=== PATIENT | female | born 1930 | race Caucasian/White ===

== ENCOUNTER → 2016-03-12 | Outpatient (CLI) | payer MEDICARE, OTHER | LOC: GMAL 12:31 | PROVIDERS: ATTEND Family Medicine | DX: D53.9 Nutritional anemia, unspecified (principal); E03.9 Hypothyroidism, unspecified ==

== ENCOUNTER → 2016-05-13 | Outpatient (CLI) | payer MEDICARE, OTHER ==
--- NOTE | 2016-05-13 12:46 | US ---
EXAM DESCRIPTION: Renal Arteries CLINICAL HISTORY: 86 years Female, ATHEROSCLEROSIS OF RENAL ARTERY COMPARISON: None. TECHNIQUE: 2-D grayscale and color arterial duplex Doppler evaluation of the abdominal aorta and renal vasculature are obtained. FINDINGS: The peak systolic velocity of the abdominal aorta is a 3.5 cm/s. Peak systolic velocity of the right main renal arteries 146 cm/s. The peak systolic velocity of the left main renal arteries 57 cm/s. The renal artery to aorta ratio is 1.8 on the right 0.7 on the left. Resistive indexes 1.8 on the right and left. There is limited evaluation of the renal parenchyma on this exam. IMPRESSION: No ultrasound evidence of renal artery stenosis. Elevated resistive index in both kidneys suggest chronic medical renal disease. Electronically signed by: Rc Frausto MD 05/13/2016 12:46 PM SURGICAL TECH
== END | disposition home or self-care (01) ==
LOC: US 10:30
PROVIDERS: ATTEND Internal Medicine Cardiovascular Disease
DX: I70.1 Atherosclerosis of renal artery (principal)

== ENCOUNTER 2016-05-21 16:50 | Outpatient (CLI) | payer MEDICARE, OTHER ==
[2016-05-22] MEDS ORDERED: SODIUM CHLORIDE 0.9% 500ML 500 ML IVS ONE (09:43)
[2016-05-22] MEDS ORDERED: diphenhydrAMINE HCL 50 MG/ML VIAL IV ONE (10:15)
[2016-05-22 13:42] VITALS: BP 158/68; TEMP 98.9; O2SAT 98
== END 2016-05-22 13:35 | disposition home or self-care (01) ==
LOC: TXRM 16:50
PROVIDERS: ATTEND Family Medicine
PROC: 30233N1 Transfusion of Nonautologous Red Blood Cells into Peripheral Vein, Percutaneous Approach (ICD-10-PCS; principal; 2016-05-22 08:00)
DX: D64.9 Anemia, unspecified (principal)
CPT/HCPCS: 36415; 36430; 86850; 86900; 86901; 86922; G0463; J1200; J7040; P9016

== ENCOUNTER → 2016-05-27 | Outpatient (CLI) | payer MEDICARE, OTHER | END | disposition home or self-care (01) | LOC: GMAL 14:07 | PROVIDERS: ATTEND Family Medicine | DX: D53.9 Nutritional anemia, unspecified (principal) ==

== ENCOUNTER 2016-05-28 15:22 | Outpatient (CLI) | payer MEDICARE, OTHER ==
[~2016-05-28 15:22] MED LIST: SODIUM CHLORIDE 0.9% 500ML 500 ML IVS ONE
[2016-05-29] MEDS: ACETAMINOPHEN 325 MG TAB PO ONE (09:15)
[2016-05-29] MEDS: diphenhydrAMINE HCL 50 MG/ML VIAL IV ONE (09:15)
[2016-05-29 12:42] VITALS: BP 156/70; TEMP 98.4; O2SAT 99
== END 2016-05-29 12:30 | disposition home or self-care (01) ==
LOC: TXRM 15:22
PROVIDERS: ATTEND Family Medicine
PROC: 30233N1 Transfusion of Nonautologous Red Blood Cells into Peripheral Vein, Percutaneous Approach (ICD-10-PCS; principal; 2016-05-29 08:00)
DX: D53.9 Nutritional anemia, unspecified (principal)
CPT/HCPCS: 36415; 36430; 86850; 86900; 86901; 86922; G0463; J1200; J7040; P9016

== ENCOUNTER → 2016-06-17 | Outpatient (CLI) | payer MEDICARE, OTHER | END | disposition home or self-care (01) | LOC: GMAL 14:26 | PROVIDERS: ATTEND Family Medicine | DX: D64.9 Anemia, unspecified (principal) ==

== ENCOUNTER → 2016-08-09 | Outpatient (CLI) | payer MEDICARE, OTHER | END | disposition home or self-care (01) | LOC: GMAL 10:23 | PROVIDERS: ATTEND Family Medicine | DX: D51.3 Other dietary vitamin B12 deficiency anemia (principal); E55.9 Vitamin D deficiency, unspecified; R25.9 Unspecified abnormal involuntary movements ==

== ENCOUNTER → 2017-02-07 | Outpatient (CLI) | payer MEDICARE, OTHER | END | disposition home or self-care (01) | LOC: GMAL 12:49 | PROVIDERS: ATTEND Family Medicine | DX: D51.3 Other dietary vitamin B12 deficiency anemia (principal); E03.9 Hypothyroidism, unspecified; E55.9 Vitamin D deficiency, unspecified ==

== ENCOUNTER 2017-06-25 12:25 | Inpatient (IN) | payer MEDICARE, OTHER ==
--- NOTE | 2017-06-25 12:42 | HP ---
SUPERVISING PHYSICIAN: Eyal Stroud MD CHIEF COMPLAINT: Coughing and shortness of breath. HISTORY OF PRESENT ILLNESS: This is an 87-year-old female patient who went to see her primary care physician, Dr. Bynum, approximately one week ago for coughing and congestion. At that time, she was treated with some azithromycin and some steroids. She completed her prescriptions from Dr. Bynum, but continued to worsen. Her cough worsened, her congestion worsened, she had a runny nose, she had a low grade temperature. He sputum actually was a petersen- green. She was very fatigued. She had some wheezing and she was short of breath. Because she continued to worsen, she saw Kate Silvestre in clinic today. CBC was obtained and she had WBC 10, hemoglobin 14.3, hematocrit 42. Chest x-ray showed no consolidation, but is positive for chronic obstructive pulmonary disease. Because of her failed outpatient treatment, I was called for admission to the hospital. She was a direct admit from Dr. Bynum' office. PAST MEDICAL HISTORY: 1. Hypothyroidism. 2. Diverticulitis. 3. Gastroesophageal reflux disease. 4. Hypertension. 5. One episode of gout. 6. Hyperlipidemia. PAST SURGICAL HISTORY: 1. Two-vessel coronary artery bypass graft in 1998. 2. times 3. 3. Hysterectomy. 4. 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 OUTPATIENT MEDICATIONS: Per the EMR and awaiting verification. ALLERGIES: CODEINE, DILTIAZEM, DOXYCYCLINE, ERYTHROMYCIN, METRONIDAZOLE, SIMVASTATIN, SULFA, ANT BITES. SOCIAL HISTORY: She is retired. She is . She has 3 children. She denies any tobacco, ETOH or illicit drug use. REVIEW OF SYSTEMS: GENERAL: Positive for fatigue and fever. Negative for weight changes. HEENT: Positive for rhinorrhea. Near for ear pain, sore throat or vision changes. RESPIRATORY: Positive for wheezing, coughing or shortness of breath. CARDIAC: Negative for chest pain, palpitations or tachycardia. GASTROINTESTINAL: Negative for nausea, vomiting, diarrhea, constipation. SKIN: Negative for lesions or rashes. GENITOURINARY: Negative for hematuria, dysuria or polyuria. MUSCULOSKELETAL: Negative for arthralgias, myalgias. NEUROLOGIC: Negative for headache, dizziness or seizures. PHYSICAL EXAMINATION: VITAL SIGNS: Afebrile. Heart rate 73. Blood pressure 160/80. Respiratory rate 20. O2 saturation 94% on 2 liters nasal cannula. GENERAL: This is an 87-year-old female patient who is lying in her hospital bed. She is in no acute distress. HEENT: Normocephalic, atraumatic. Pupils are equal and reactive. Oropharynx is clear. NECK: Supple without mass. RESPIRATORY: Diminished breath sounds throughout. She has scattered rhonchi throughout as well as diffuse expiratory wheezing. CARDIOVASCULAR: Regular rate and rhythm. GASTROINTESTINAL: Abdomen is soft, nondistended, nontender. Bowel sounds are positive. EXTREMITIES: No cyanosis, clubbing or edema. NEUROLOGIC: Awake, alert and oriented times three. LABORATORY: Sodium 135, potassium 4.7, chloride 97, carbon dioxide 29, BUN 25, creatinine 1.04, glucose 93, serum osmolality 274.2. Urinalysis within normal limits. Sputum culture and blood cultures are pending. All other labs and films are as per history of present illness or the EMR. ASSESSMENT: 1. Acute exacerbation of chronic obstructive pulmonary disease with failed outpatient therapy with concerns for developing pneumonia, community acquired. 2. Hypertension. 3. Hypothyroidism. PLAN: We will admit the patient to the hospital. I will order good pulmonary hygiene as well as some Levaquin and IV steroids. We will taper those as her condition improves. Repeat her lab and chest x-ray in the morning. I will also monitor her cultures. I will start her on guaifenesin and continue to monitor the patient closely and follows as needed. Dr. Stroud is the collaborating physician and available for consultation. #[id number] [facility]
[2017-06-25] MEDS ORDERED: SODIUM CHLORIDE 0.9% (FLUSH) 10 ML SYG IV PRN (14:24)
[2017-06-25] MEDS ORDERED: ALBUTEROL SULFATE 2.5 MG/3 ML VIAL NEB PRN (14:25)
[2017-06-25] MEDS ORDERED: IV SET AND CAP CHANGE INJ INJ SCH (14:30)
[2017-06-25] MEDS ORDERED: levoFLOXacin 250MG IV 250 MG in PREMIX BAG 1 BAG IVPB SCH (14:30)
[2017-06-25] MEDS ORDERED: levoFLOXacin 250MG IV 50 ML IVPB ONE (15:33)
[2017-06-25] MEDS: ALBUTEROL SULFATE 2.5 MG/3 ML VIAL NEB SCH ×2 (16:30→21:00)
[2017-06-25] MEDS ORDERED: SODIUM CHLORIDE 0.9% 1000ML 1,000 ML IVS ONE (18:21)
[2017-06-25] MEDS ORDERED: methylPREDNISolone SODIUM SUC 125 MG/2 ML VIAL IV ONE (18:22)
[2017-06-25] MEDS ORDERED: NON-FORMULARY MEDICATION 1 EA MIS (Amlodipine Besylate [Norvasc] 2.5 MG) PO SCH (18:45)
[2017-06-25] MEDS: IRBESARTAN 300 MG PO SCH (19:05)
[2017-06-25] MEDS ORDERED: PANTOPRAZOLE SODIUM IV 40 MG VIAL IV SCH (19:30)
[2017-06-25] MEDS ORDERED: methylPREDNISolone SODIUM SUC 40 MG/ML VIAL ONE (21:49)
[2017-06-25] MEDS ORDERED: LEVOTHYROXINE SODIUM 0.025 MG TAB ONE (21:50)
[2017-06-25] MEDS: ENOXAPARIN SODIUM 40 MG/0.4 ML SYG SUBCU SCH (22:18)
[2017-06-25] MEDS: ATORVASTATIN 20 MG TAB PO SCH (22:19)
[2017-06-25] MEDS: CARVEDILOL 12.5 MG TAB PO SCH (22:19)
[2017-06-25] MEDS: ISOSORBIDE DINITRATE 5 MG TAB PO SCH (22:20)
[2017-06-25] MEDS: SODIUM CHLORIDE 0.9% (FLUSH) 10 ML SYG IV SCH (22:20)
[2017-06-26] MEDS: methylPREDNISolone SODIUM SUC 40 MG/ML VIAL IV SCH ×4 (00:33→18:02)
[2017-06-26] MEDS: LEVOTHYROXINE SODIUM 0.025 MG TAB PO SCH (05:42)
[2017-06-26] MEDS: ALBUTEROL SULFATE 2.5 MG/3 ML VIAL NEB SCH ×4 (09:15→20:02)
[2017-06-26] MEDS: DOCUSATE SODIUM 100 MG CAP PO SCH (09:55)
[2017-06-26] MEDS: amLODIPine BESYLATE 5 MG TAB PO SCH (09:55)
[2017-06-26] MEDS: IRBESARTAN 300 MG PO SCH (09:55)
[2017-06-26] MEDS: CARVEDILOL 12.5 MG TAB PO SCH ×2 (09:56→21:32)
[2017-06-26] MEDS: ISOSORBIDE DINITRATE 5 MG TAB PO SCH ×2 (09:56→21:32)
[2017-06-26] MEDS: guaiFENesin ER TAB 600 MG TAB PO SCH ×2 (09:56→21:32)
[2017-06-26] MEDS: SODIUM CHLORIDE 0.9% (FLUSH) 10 ML SYG IV SCH ×2 (09:57→21:33)
[2017-06-26] MEDS ORDERED: levoFLOXacin 250MG IV 250 MG in PREMIX BAG 1 BAG IVPB SCH (15:00)
[2017-06-26] MEDS ORDERED: BENZONATATE PERLES 100 MG CAP PO PRN (15:42)
[2017-06-26] MEDS ORDERED: levoFLOXacin 250MG IV 50 ML IVPB ONE (15:47)
[2017-06-26] MEDS: PANTOPRAZOLE SODIUM TAB 40 MG PO SCH (16:53)
[2017-06-26] MEDS: ATORVASTATIN 20 MG TAB PO SCH (21:32)
[2017-06-26] MEDS: ENOXAPARIN SODIUM 40 MG/0.4 ML SYG SUBCU SCH (21:33)
[2017-06-27] MEDS: LEVOTHYROXINE SODIUM 0.025 MG TAB PO SCH (06:03)
[2017-06-27] MEDS: PANTOPRAZOLE SODIUM TAB 40 MG PO SCH (06:03)
--- NOTE | 2017-06-27 07:18 | RAD ---
Examination: XR CHEST 2 VIEWS dated 06/27/2017 5:00 AM CDT History: pna Comparison: 06/23/2015 Technique: 2 views of the chest Findings: The lungs are clear bilaterally. No pneumothorax or pleural effusion. Prior median sternotomy with CABG. Unremarkable cardiac silhouette. Aortic atherosclerosis. Impression: No acute findings. Electronically signed by: Daniel Le MD 06/27/2017 7:16 AM CDT
--- NOTE | 2017-06-27 07:40 | PN ---
DATE: 06/26/17 SUPERVISING PHYSICIAN: Eyal Stroud MD SUBJECTIVE: The patient is lying in bed. Earlier today she had a very bad cough which she had difficulty breathing, most likely it was a bronchospasm. Other thab that, she has no complaints of chest pain, nausea or vomiting. She continues to have a cough but it is improved since yesterday. OBJECTIVE: VITAL SIGNS: She is afebrile. Heart rate 74, blood pressure 152/74, respiratory rate 18. 02 saturation 98%on room air. CHEST: Scattered rhonchi throughout all lung hoffmann but improved since yesterday. There is a very mild expiratory wheeze in the right upper airway. CARDIAC: Regular rate and rhythm. GI: Abdomen is soft, nondistended, non-tender. Bowel sounds are positive. NEURO: She is alert and oriented x3. LABORATORY: Chemistry is basically within normal limits with the exception of glucose which is slightly elevated at 155. WBCs are 9.1 with hemoglobin of 13.4 and hematocrit of 40.4 with neutrophils of 89.0. Preliminary blood cultures show no growth after 24 hours. Preliminary sputum culture shows gram- negative rods. All other labs and films have been reviewed via the EMR. ASSESSMENT: 1. Acute exacerbation of chronic obstructive pulmonary disease with failed outpatient therapy and concerns for developing pneumonia, community acquired. Initial sputum culture shows gram-negative rods. 2. Hypertension. 3. Hypothyroidism. PLAN: We will continue present supportive care. We will continue to monitor her sputum once the sensitivities are available and will change antibiotics as needed. Clinically, she is much improved, she did have a bronchospasm this afternoon and I have given er some Tessalon Perles for cough as well as Guaifenesin. I have ordered a CBC, BNP and chest x-ray in the morning. I changed her to oral steroids starting tomorrow as well as her Levaquin antibiotics and will continue to monitor closely and follow as needed. Dr. Stroud is the collaborating physician available for consultation. #[id number] [facility]
[2017-06-27] MEDS: ALBUTEROL SULFATE 2.5 MG/3 ML VIAL NEB SCH ×4 (08:17→20:35)
[2017-06-27] MEDS ORDERED: levoFLOXacin 250MG IV 250 MG in PREMIX BAG 1 BAG IVPB SCH (09:00)
[2017-06-27] MEDS: IRBESARTAN 300 MG PO SCH (10:24)
[2017-06-27] MEDS: levoFLOXacin 500 MG TAB PO SCH (10:24)
[2017-06-27] MEDS: guaiFENesin ER TAB 600 MG TAB PO SCH ×2 (10:25→21:40)
[2017-06-27] MEDS: DOCUSATE SODIUM 100 MG CAP PO SCH (10:25)
[2017-06-27] MEDS: predniSONE 20 MG TAB PO SCH (10:25)
[2017-06-27] MEDS: CARVEDILOL 12.5 MG TAB PO SCH ×2 (10:25→21:39)
[2017-06-27] MEDS: ISOSORBIDE DINITRATE 5 MG TAB PO SCH ×2 (10:25→21:39)
[2017-06-27] MEDS: amLODIPine BESYLATE 5 MG TAB PO SCH (10:26)
[2017-06-27] MEDS: SODIUM CHLORIDE 0.9% (FLUSH) 10 ML SYG IV SCH ×2 (10:27→21:40)
--- NOTE | 2017-06-27 18:03 | PN ---
DATE: 06/27/17 SUPERVISING PHYSICIAN: Eyal Stroud M.D. SUBJECTIVE: The patient is sitting on the side of the bed. She is visiting with her . She is doing a breathing treatment. Feels much improved. Still has some coughing but no shortness of breath, chest pain, nausea, vomiting or diarrhea. OBJECTIVE: VITAL SIGNS: She is afebrile, heart rate 77, blood pressure 155/72, respiratory rate 20, O2 sat 96% on room air. RESPIRATORY: A few scattered rhonchi throughout and an expiratory wheeze in the left upper lung field. CARDIAC: Regular rate and rhythm. GASTROINTESTINAL: Abdomen is soft, nondistended, non-tender. Bowel sounds are positive. EXTREMITIES: No cyanosis , clubbing or edema. NEUROLOGIC: She is awake, alert and oriented times three. LABORATORY: WBCs have increased to 18,800 with hemoglobin 11.9, hematocrit 36.3. Electrolytes are within normal limits. Sputum culture shows Klebsiella pneumoniae sensitive to Levaquin which she is presently taking. RADIOLOGY: Chest x-ray shows no acute findings. All other labs and films have been reviewed via the EMR. ASSESSMENT: 1. Acute exacerbation of chronic obstructive pulmonary disease with failed outpatient therapy and concerns for community acquired pneumonia. Sputum cultures show Klebsiella pneumoniae and a sensitivity to Levaquin. 2. Hypertension. 3. Hypothyroidism. PLAN: We will continue present supportive care. Her leukocytosis is most likely due to her steroids which those are being tapered down. She will continue on her Levaquin. Will repeat her labs in the morning. She will go home on Levaquin and a steroid taper as well as she will need to be on some Albuterol treatments at least 4 times daily for a week or so. I have also recommended that she take Mucinex twice a day for 2 weeks. If she continues to improve clinically and her white count is better tomorrow, she will hopefully be discharged home with close followup with Dr. Bynum. Otherwise we will continue to monitor closely and follow as needed. Dr. Stroud is the collaborating physician available for consultation. #[id number] [facility]
[2017-06-27] MEDS: ENOXAPARIN SODIUM 40 MG/0.4 ML SYG SUBCU SCH (21:40)
[2017-06-27] MEDS: ATORVASTATIN 20 MG TAB PO SCH (21:40)
[2017-06-28] MEDS: PANTOPRAZOLE SODIUM TAB 40 MG PO SCH (06:10)
[2017-06-28] MEDS: LEVOTHYROXINE SODIUM 0.025 MG TAB PO SCH (06:10)
[2017-06-28] MEDS: ALBUTEROL SULFATE 2.5 MG/3 ML VIAL NEB SCH (07:26)
[2017-06-28] MEDS ORDERED: FLUCONAZOLE 150 MG TAB PO ONE (09:36)
[2017-06-28] MEDS: CARVEDILOL 12.5 MG TAB PO SCH (09:53)
[2017-06-28] MEDS: DOCUSATE SODIUM 100 MG CAP PO SCH (09:53)
[2017-06-28] MEDS: levoFLOXacin 500 MG TAB PO SCH (09:54)
[2017-06-28] MEDS: IRBESARTAN 300 MG PO SCH (09:54)
[2017-06-28] MEDS: amLODIPine BESYLATE 5 MG TAB PO SCH (09:55)
[2017-06-28] MEDS: predniSONE 20 MG TAB PO SCH (09:55)
[2017-06-28] MEDS: guaiFENesin ER TAB 600 MG TAB PO SCH (09:55)
[2017-06-28] MEDS: SODIUM CHLORIDE 0.9% (FLUSH) 10 ML SYG IV SCH (09:56)
[2017-06-28] MEDS: ISOSORBIDE DINITRATE 5 MG TAB PO SCH (10:06)
[2017-06-28 11:23] VITALS: BP 174/66; TEMP 97.6; O2SAT 93
--- NOTE | 2017-06-29 20:09 | DS ---
SUPERVISING PHYSICIAN: Eyal Stroud M.D. DISCHARGE DIAGNOSIS: 1. Acute exacerbation of chronic obstructive pulmonary disease with failed outpatient therapy with community acquired pneumonia with final culture results showing Klebsiella pneumoniae sensitive to Levaquin. 2. Hypertension. 3. Hypothyroidism. REASON FOR HOSPITALIZATION: Ms. Garcia is an 87-year-old female patient who went to see her primary care physician, Dr. Bynum, approximately one week previous for coughing and congestion. At that time, she was treated with some azithromycin and some steroids for an upper respiratory infection. She completed her prescriptions from Dr. Bynum, but continued to worsen. Her cough worsened, her congestion worsened as well as she had a runny nose and a low grade temperature. He sputum actually was purulent. She was very fatigued. She had some wheezing and shortness of breath. Due to her continued worsening symptoms, she again went back to clinic and saw Kate Silvestre in walk -in clinic. Her CBC at that time showed she had a white count of 10,000. Chest x-ray initially showed no consolidation, but was positive for chronic obstructive pulmonary disease. Due to the failed outpatient treatment, the patient was directly admitted from Dr. Bynum' office for admission for exacerbation of COPD with community-acquired pneumonia. LABORATORY: She did have a leukocytosis, initially her white count was 9,100. On 06/27/17, it went up to 18,800. After initiation of treatment and continuation of treatment prior to discharge, it started to return to baseline, but still elevated at 13,800. She did have a left shift that continued but was showing some improvement. H&H was stable at 13 and 39, platelet count 233,000 at discharge. Chemistries showed normal electrolytes both on admission and discharge. At discharge, her BUN was 26, creatinine 0.67, calcium 8.4. Liver functions were all within normal limits. She had a urinalysis that was within normal limits. MICROBIOLOGY: She had 2 sets of blood cultures that remained negative after 3 days. She had a sputum culture that showed Klebsiella pneumoniae that was resistant only to Ampicillin, Macrobid and Piperacillin, and showing sensitive to Levaquin. Please see that final results of full sensitivity report. RADIOLOGY: She had a chest x-ray per radiology interpretation of 2 view chest showed no acute findings. HOSPITAL COURSE: Ms. Garcia was admitted as noted above for exacerbation of her COPD and community acquired pneumonia with a positive sputum culture with Klebsiella pneumoniae. She was initiated on antibiotics with Levaquin initially with a 750 mg loading dose and was renally dosed after at 250 mg daily. She was given a one time dose of Solu-Medrol and tapered to 40 mg, and then 40 mg of prednisone daily. She did have concern for a yeast infection and was given one time Diflucan. She was also treated with aggressive pulmonary hygiene with DuoNeb treatments and clinically showed good improvement. She did continue with a cough but was controlled well with Tessalon Perles. On the day of discharge, she had felt clinically improved well enough to discharge home and was feeling much better. In fact, she was excited to attend her 's 89st birthday, therefore the patient was discharged to have close clinical followup with Dr. Bynum. PLAN: Ms. Garcia was discharged to have close clinical followup with Dr. Bynum. She is to schedule an appointment next week. She is to resume her home medications as previous to hospitalization and return to the hospital should she have any concerning symptoms. Diet at discharge is regular diet as tolerated. Activity is increase as tolerated. New prescriptions provided at discharge included: 1. Albuterol nebulizer treatments 2.5 mg per 3 mL q.i.d. and p.r.n., #60. 2. Tessalon Perles 200 mg 3 times a day as needed, #30. 3. Diflucan 150 mg once in 3 days if symptoms have not improved. 4. Guaifenesin 600 mg daily, #28. 5. Levaquin 250 mg every 24 hours, #7. 6. Prednisone tapering pack #30s, 40 mg for 3 days starting for 3 days continuing to 10 mg until completed. Condition on discharge was stable and improved. #[id number] [facility]
== END 2017-06-28 11:00 | disposition home or self-care (01) | DRG 178 ==
LOC: MS 12:25
PROVIDERS: ADMIT Family Medicine; ATTEND Nurse Practitioner Acute Care
DX: J15.0 Pneumonia due to Klebsiella pneumoniae (principal); J44.0 Chronic obstructive pulmonary disease with (acute) lower respiratory infection; J44.1 Chronic obstructive pulmonary disease with (acute) exacerbation; I10 Essential (primary) hypertension; E03.9 Hypothyroidism, unspecified; K21.9 Gastro-esophageal reflux disease without esophagitis; M10.9 Gout, unspecified; E78.5 Hyperlipidemia, unspecified; Z95.1 Presence of aortocoronary bypass graft; Z88.1 Allergy status to other antibiotic agents; Z88.5 Allergy status to narcotic agent; Z88.2 Allergy status to sulfonamides; Z88.8 Allergy status to other drugs, medicaments and biological substances

== ENCOUNTER 2017-10-15 18:53 | Emergency (ER) | payer MEDICARE, OTHER ==
[2017-10-15] MEDS ORDERED: IPRATROPIUM/ALBUTEROL 3 ML VIAL NEB ONE (19:22)
[2017-10-15] MEDS ORDERED: diphenhydrAMINE HCL 50 MG/ML VIAL IM ONE (19:27)
[2017-10-15] MEDS ORDERED: diphenhydrAMINE HCL 50 MG/ML VIAL ONE (19:28)
--- NOTE | 2017-10-15 19:34 | ED.PDOC ---
History of Present Illness - General Chief Complaint: Allergic Reaction Stated Complaint: bit by fireants, hx being allergic Time Seen by Provider: 10/15/17 19:29 Source: patient Exam Limitations: no limitations Additional Information: HX ALLERGIC REACTION TO FIRE ANTS. 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 C/O SOME SOB - History of Present Illness Timing/Duration: 1 hour Severity: moderate Improving Factors: other - BETTER AFTER EPIPEN Worsening Factors: nothing Allergies/Adverse Reactions: Allergies Codeine Allergy (Verified 06/18/15 12:31) Vomitting Diltiazem Allergy (Verified 06/18/15 12:31) Doxycycline Allergy (Verified 06/18/15 12:31) Erythromycin Allergy (Verified 06/18/15 12:31) Metronidazole Allergy (Verified 06/18/15 12:31) Simvastatin [From Zocor] Allergy (Verified 06/18/15 12:31) Sulfa Antibiotics Allergy (Verified 06/18/15 12:31) ant Allergy (Severe, Uncoded 06/25/17 14:57) Anaphylaxis Home Medications: Ambulatory Orders Amlodipine Besylate [Norvasc] 2.5 mg PO DAILY 06/18/15 Carvedilol 25 mg PO BID 06/18/15 Irbesartan 300 mg PO DAILY 06/18/15 Levothyroxine Sodium 50 mcg PO DAILY 06/18/15 Psyllium [Metamucil] 2 each PO TID 06/20/15 Calcium Carb 500Mg-Vitamin D [Oscal 500 + D] 2 ea PO BID 01/16/16 EPINEPHrine AUTO-INJ HELADIO [Epipen-Jr] 0.15 mg IM PRN 01/16/16 Famotidine [Pepcid AC Ez Chews Maximu] 20 mg PO BID 01/16/16 Aspirin [Aspirin EC] 81 mg PO DAILY 06/25/17 Atorvastatin Calcium [Lipitor] 20 mg PO BEDTIME 06/25/17 Cholecalciferol [Vitamin D3] 1,000 unit PO DAILY 06/25/17 Cyanocobalamin [B12] 1,000 mcg PO DAILY 06/25/17 Isosorbide Dinitrate 20 mg PO BID 06/25/17 Multiple Vitamins W/ Minerals [Preservision Areds 2] 1 cap PO BID 06/25/17 Albuterol Sulfate Nebs [Proventil Nebs] 2.5 mg NEB Q4H PRN #60 vial 06/27/17 Benzonatate Perles [Tessalon Perles] 200 mg PO TID PRN #30 cap 06/27/17 Prednisone See Taper PO DAILY #30 tab 06/27/17 guaiFENesin ER TAB [Mucinex Tab] 600 mg PO BID #28 tab 06/27/17 levoFLOXacin [Levaquin] 250 mg PO Q24H #7 tab 06/27/17 Fluconazole [Diflucan Tab] 150 mg PO ONCE #1 tab 06/28/17 Methylprednisolone [Medrol Dose Bang] 4 mg PO DAILY #1 pack 10/15/17 Review of Systems - Review of Systems Constitutional: Denies: chills, fever EENTM: States: other - C/O SOME DIFFICULTY SWALLOWING BUT IS ABLE TO HANDLE SALIVA. . Denies: blurred vision, mouth pain, mouth swelling Respiratory: States: short of breath. Denies: cough Cardiology: Denies: chest pain, palpitations Gastrointestinal/Abdominal: Denies: nausea, vomiting Genitourinary: States: no symptoms reported Musculoskeletal: States: no symptoms reported Skin: States: no symptoms reported. Denies: rash Neurological: States: no symptoms reported Endocrine: States: no symptoms reported Hematologic/Lymphatic: States: no symptoms reported Past Medical History (General) - Patient Medical History Hx Seizures: No Hx Stroke: No Hx Asthma: No Hx of COPD: No Hx Cardiac Disorders: Yes - cardiac stent x1 Hx Congestive Heart Failure: No Hx Pacemaker: No Hx Hypertension: Yes Hx Thyroid Disease: Yes Hx Diabetes: No Hx Gastroesophageal Reflux: Yes Hx Renal Disease: Yes - kidney stents Hx MRSA: No MRSA Source:: Wound Surgical History: Hysterectomy, other - Vaccination History Hx Tetanus, Diphtheria Vaccination: Yes Hx Influenza Vaccination: Yes Hx Pneumococcal Vaccination: Yes Immunizations Up to Date: Yes - Social History Hx Tobacco Use: No Hx Alcohol Use: No Hx Substance Use: No Hx Physical Abuse: No Hx Emotional Abuse: No - Female History Patient : No - Triage Comment ED Triage Comment: Throat clear, Lungs clear but diminished. Family Medical History - Family History Mother Family History: No Known Living Status: Physical Exam - Physical Exam General Appearance: Alert, Anxious, No apparent distress Eye Exam: bilateral normal Ears, Nose, Throat: normal ENT inspection, normal pharynx Neck: full range of motion, supple, normal inspection Respiratory: lungs clear, normal breath sounds, other - MINIMAL PROLONGATION OF EXP PHASE Cardiovascular/Chest: regular rate, rhythm, no murmur Gastrointestinal/Abdominal: non tender, soft, no organomegaly Back Exam: normal inspection, no CVA tenderness Extremity: normal range of motion, non-tender, other - 2 SMALL BITES DORSAL ASPECT L FOOT. Neurologic: alert, normal mood/affect Skin Exam: normal color, warm/dry Progress - Progress Progress: 10/15/17 20:43 FEELS BETTER Departure - Departure Clinical Impression: Allergic reaction Qualifiers: Encounter type: initial encounter Qualified Code(s): T78.40XA - Allergy, unspecified, initial encounter Disposition: Discharge to Home or Self Care Condition: Good Departure Forms: ED Discharge - Pt. Copy, Patient Portal Self Enrollment Instructions: DI for Allergic Rhinitis Referrals: Duane Bynum III, MD [Primary Care Provider] - 1-2 Weeks Prescriptions: Methylprednisolone [Medrol Dose Bang] 4 mg PO DAILY #1 pack Home Medications: Ambulatory Orders Amlodipine Besylate [Norvasc] 2.5 mg PO DAILY 06/18/15 Carvedilol 25 mg PO BID 06/18/15 Irbesartan 300 mg PO DAILY 06/18/15 Levothyroxine Sodium 50 mcg PO DAILY 06/18/15 Psyllium [Metamucil] 2 each PO TID 06/20/15 Calcium Carb 500Mg-Vitamin D [Oscal 500 + D] 2 ea PO BID 01/16/16 EPINEPHrine AUTO-INJ HELADIO [Epipen-Jr] 0.15 mg IM PRN 01/16/16 Famotidine [Pepcid AC Ez Chews Maximu] 20 mg PO BID 01/16/16 Aspirin [Aspirin EC] 81 mg PO DAILY 06/25/17 Atorvastatin Calcium [Lipitor] 20 mg PO BEDTIME 06/25/17 Cholecalciferol [Vitamin D3] 1,000 unit PO DAILY 06/25/17 Cyanocobalamin [B12] 1,000 mcg PO DAILY 06/25/17 Isosorbide Dinitrate 20 mg PO BID 06/25/17 Multiple Vitamins W/ Minerals [Preservision Areds 2] 1 cap PO BID 06/25/17 Albuterol Sulfate Nebs [Proventil Nebs] 2.5 mg NEB Q4H PRN #60 vial 06/27/17 Benzonatate Perles [Tessalon Perles] 200 mg PO TID PRN #30 cap 06/27/17 Prednisone See Taper PO DAILY #30 tab 06/27/17 guaiFENesin ER TAB [Mucinex Tab] 600 mg PO BID #28 tab 06/27/17 levoFLOXacin [Levaquin] 250 mg PO Q24H #7 tab 06/27/17 Fluconazole [Diflucan Tab] 150 mg PO ONCE #1 tab 06/28/17 Methylprednisolone [Medrol Dose Bang] 4 mg PO DAILY #1 pack 10/15/17
[2017-10-15] MEDS ORDERED: methylPREDNISolone SODIUM SUC 125 MG/2 ML VIAL IM ONE (19:35)
[2017-10-15 21:06] VITALS: BP 161/77; TEMP 97.9; O2SAT 97
== END 2017-10-15 21:07 | disposition home or self-care (01) ==
LOC: ER 18:53
DX: T63.421A Toxic effect of venom of ants, accidental (unintentional), initial encounter (principal); I10 Essential (primary) hypertension; E07.9 Disorder of thyroid, unspecified; K21.9 Gastro-esophageal reflux disease without esophagitis; I51.9 Heart disease, unspecified; Z91.038 Other insect allergy status; Z95.5 Presence of coronary angioplasty implant and graft; Z88.8 Allergy status to other drugs, medicaments and biological substances; Z88.5 Allergy status to narcotic agent; Z88.1 Allergy status to other antibiotic agents; Z88.2 Allergy status to sulfonamides; Y92.9 Unspecified place or not applicable
CPT/HCPCS: 94640; J1200; J2930; J7620

== ENCOUNTER 2017-12-28 12:53 | Emergency (ER) | payer MEDICARE, OTHER ==
[2017-12-28 13:36] VITALS: TEMP 97.6
[2017-12-28] MEDS ORDERED: cefTRIAXone SODIUM 1 GM VIAL IM ONE (13:57)
[2017-12-28] MEDS ORDERED: CIPROFLOXACIN 250 MG TAB PO ONE (14:00)
[2017-12-28] MEDS ORDERED: FLUCONAZOLE 100 MG TAB PO ONE (14:02)
--- NOTE | 2017-12-28 14:03 | ED.PDOC ---
History of Present Illness - General Chief Complaint: Problem Stated Complaint: UTI symptoms Time Seen by Provider: 12/28/17 13:36 Source: patient Exam Limitations: no limitations - History of Present Illness Initial Comments: the patient is a very pleasant 87-year-old female presenting to the emergency room with symptoms consistent with cystitis and mild pyelonephritis on the left. She does not have frequent urinary tract infections and thinks her last one was more than 20 years ago. She does have left flank pain. She does have urinary frequency and dysuria as well as some lower abdominal cramping. No blood. No difficulties with bowel movements. No fevers. No evidence of sepsis. She is alert and pleasant and cooperative. Blood pressures are moderately elevated here today. She has been increasing her fluid intake. Timing/Duration: other - 4 days Severity: moderate Improving Factors: nothing Worsening Factors: nothing Associated Symptoms: malaise Allergies/Adverse Reactions: Allergies Amlodipine [From Norvasc] Allergy (Verified 12/28/17 13:59) Codeine Allergy (Verified 06/18/15 12:31) Vomitting Diltiazem Allergy (Verified 06/18/15 12:31) Doxycycline Allergy (Verified 06/18/15 12:31) Erythromycin Allergy (Verified 06/18/15 12:31) Metronidazole Allergy (Verified 06/18/15 12:31) Simvastatin [From Zocor] Allergy (Verified 06/18/15 12:31) Sulfa Antibiotics Allergy (Verified 06/18/15 12:31) ant Allergy (Severe, Uncoded 06/25/17 14:57) Anaphylaxis Home Medications: Ambulatory Orders Amlodipine Besylate [Norvasc] 2.5 mg PO DAILY 06/18/15 Carvedilol 25 mg PO BID 06/18/15 Irbesartan 300 mg PO DAILY 06/18/15 Levothyroxine Sodium 50 mcg PO DAILY 06/18/15 Psyllium [Metamucil] 2 each PO TID 06/20/15 Calcium Carb 500Mg-Vitamin D [Oscal 500 + D] 2 ea PO BID 01/16/16 EPINEPHrine AUTO-INJ HELADIO [Epipen-Jr] 0.15 mg IM PRN 01/16/16 Famotidine [Pepcid AC Ez Chews Maximu] 20 mg PO BID 01/16/16 Aspirin [Aspirin EC] 81 mg PO DAILY 06/25/17 Atorvastatin Calcium [Lipitor] 20 mg PO BEDTIME 06/25/17 Isosorbide Dinitrate 20 mg PO BID 06/25/17 Multiple Vitamins W/ Minerals [Preservision Areds 2] 1 cap PO BID 06/25/17 Bifidobacterium Infantis [Align] 4 mg PO DAILY 12/28/17 Ciprofloxacin [Cipro] 250 mg PO BID #14 tablet 12/28/17 Clopidogrel Bisulfate 75 mg PO DAILY 12/28/17 Review of Systems - Review of Systems Constitutional: States: malaise - Mild EENTM: States: no symptoms reported Respiratory: States: no symptoms reported Cardiology: States: no symptoms reported Gastrointestinal/Abdominal: States: abdominal pain Genitourinary: States: dysuria, frequency, pain Musculoskeletal: States: back pain - left flank Skin: States: no symptoms reported Neurological: States: no symptoms reported Endocrine: States: no symptoms reported All other Systems: No Change from Baseline Past Medical History (General) - Patient Medical History Hx Seizures: No Hx Stroke: No Hx Asthma: No Hx of COPD: No Hx Cardiac Disorders: Yes - cardiac stent x1 Hx Congestive Heart Failure: No Hx Pacemaker: No Hx Hypertension: Yes Hx Thyroid Disease: Yes Hx Diabetes: No Hx Gastroesophageal Reflux: Yes Hx Renal Disease: Yes - kidney stents Hx MRSA: No MRSA Source:: Wound Surgical History: Hysterectomy - Vaccination History Hx Tetanus, Diphtheria Vaccination: Yes Hx Influenza Vaccination: Yes Hx Pneumococcal Vaccination: Yes - Social History Hx Tobacco Use: No Hx Alcohol Use: No Hx Substance Use: No Hx Physical Abuse: No Hx Emotional Abuse: No - Female History Patient : No Family Medical History - Family History Mother Family History: No Known Living Status: Physical Exam - Physical Exam General Appearance: Alert, No apparent distress Eye Exam: bilateral normal Ears, Nose, Throat: normal ENT inspection, normal pharynx Neck: full range of motion, supple Respiratory: lungs clear, normal breath sounds, no respiratory distress, no accessory muscle use Cardiovascular/Chest: normal peripheral pulses, regular rate, rhythm, no edema Peripheral Pulses: radial,right: 2+, radial,left: 2+, dorsalis pedis,right: 2+, dorsalis pedis,left: 2+ Gastrointestinal/Abdominal: non tender, soft, other - mild suprapubic discomfort palpation No rebound or peritoneal signs. 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 She does not appear to be septic. She does need to continue to increase her fluid intake over the next few days. She was given a dose of Rocephin here and a dose of Diflucan as well as a dose of ciprofloxacin. She'll be placed on low-dose ciprofloxacin twice a day for the next 7 days. Urine culture is being performed. She does need to follow up with her primary care doctor later in the week for a repeat urinalysis to make sure that it is clearing. She needs to return here to the emergency room for any significant worsening. ER warnings were given. - Results/Orders Results/Orders: Laboratory Tests 12/28/17 13:37 Urine Color Yellow Urine Appearance Sl cloudy Urine pH 7.0 Ur Specific [place] 1.010 Urine Protein 30 Urine Glucose (UA) Negative Urine Ketones Negative Urine Blood Large H Urine Nitrite Negative Urine Bilirubin Negative Urine Urobilinogen 0.2 Ur Leukocyte Esterase Large H Urine RBC Tntc H Urine WBC Tntc H Ur Epithelial Cells 0 Urine Bacteria 1+ Departure - Departure Clinical Impression: Pyelonephritis Disposition: Discharge to Home or Self Care Condition: Fair Departure Forms: ED Discharge - Pt. Copy, Patient Portal Self Enrollment Instructions: DI for Urinary Tract Infection (UTI) Diet: regular diet Activity: increase activity as tolerated Referrals: Duane Bynum III, MD [Primary Care Provider] - 1-5 Days Prescriptions: Ciprofloxacin [Cipro] 250 mg PO BID #14 tablet Home Medications: Ambulatory Orders Amlodipine Besylate [Norvasc] 2.5 mg PO DAILY 06/18/15 Carvedilol 25 mg PO BID 06/18/15 Irbesartan 300 mg PO DAILY 06/18/15 Levothyroxine Sodium 50 mcg PO DAILY 06/18/15 Psyllium [Metamucil] 2 each PO TID 06/20/15 Calcium Carb 500Mg-Vitamin D [Oscal 500 + D] 2 ea PO BID 01/16/16 EPINEPHrine AUTO-INJ HELADIO [Epipen-Jr] 0.15 mg IM PRN 01/16/16 Famotidine [Pepcid AC Ez Chews Maximu] 20 mg PO BID 01/16/16 Aspirin [Aspirin EC] 81 mg PO DAILY 06/25/17 Atorvastatin Calcium [Lipitor] 20 mg PO BEDTIME 06/25/17 Isosorbide Dinitrate 20 mg PO BID 06/25/17 Multiple Vitamins W/ Minerals [Preservision Areds 2] 1 cap PO BID 06/25/17 Bifidobacterium Infantis [Align] 4 mg PO DAILY 12/28/17 Ciprofloxacin [Cipro] 250 mg PO BID #14 tablet 12/28/17 Clopidogrel Bisulfate 75 mg PO DAILY 12/28/17 Additional Instructions: the patient's an 87-year-old female presenting to the emergency room secondary to symptoms of cystitis and early pyelonephritis on the left for the last 3 days. She does not appear to be septic. She does need to continue to increase her fluid intake over the next few days. She was given a dose of Rocephin here and a dose of Diflucan as well as a dose of ciprofloxacin. She' ll be placed on low-dose ciprofloxacin twice a day for the next 7 days. Urine culture is being performed. She does need to follow up with her primary care doctor later in the week for a repeat urinalysis to make sure that it is clearing. She needs to return here to the emergency room for any significant worsening. ER warnings were given. she needs to hold her cholesterol medication well taking antibiotics.
[2017-12-28] MEDS ORDERED: LIDOCAINE 1% 10 ML VIAL INJ ONE (14:07)
[2017-12-28 14:37] VITALS: BP 184/74; O2SAT 96
== END 2017-12-28 14:37 | disposition home or self-care (01) ==
LOC: ER 12:53
DX: N12 Tubulo-interstitial nephritis, not specified as acute or chronic (principal); I10 Essential (primary) hypertension; E07.9 Disorder of thyroid, unspecified; K21.9 Gastro-esophageal reflux disease without esophagitis; Z87.440 Personal history of urinary (tract) infections; Z79.899 Other long term (current) drug therapy; Z88.8 Allergy status to other drugs, medicaments and biological substances; Z88.5 Allergy status to narcotic agent; Z88.1 Allergy status to other antibiotic agents; Z79.82 Long term (current) use of aspirin; Z88.2 Allergy status to sulfonamides; Z95.5 Presence of coronary angioplasty implant and graft
CPT/HCPCS: 81001; 87086; J0696

== ENCOUNTER → 2018-02-10 | Outpatient (CLI) | payer MEDICARE, OTHER | LOC: GMAL 14:57 | PROVIDERS: ATTEND Family Medicine | DX: D64.9 Anemia, unspecified (principal) ==

== ENCOUNTER → 2018-04-14 | Outpatient (CLI) | payer MEDICARE, OTHER | LOC: GMAL 14:52 | PROVIDERS: ATTEND Family Medicine | DX: D51.3 Other dietary vitamin B12 deficiency anemia (principal); E03.9 Hypothyroidism, unspecified; E55.9 Vitamin D deficiency, unspecified ==

== ENCOUNTER → 2018-07-23 | Outpatient (CLI) | payer MEDICARE, OTHER | LOC: GMAL 14:59 | PROVIDERS: ATTEND Family Medicine | DX: D50.8 Other iron deficiency anemias (principal) ==

== ENCOUNTER → 2018-08-24 | Outpatient (CLI) | payer MEDICARE, OTHER | LOC: GMAL 16:52 | PROVIDERS: ATTEND Family Medicine | DX: D50.8 Other iron deficiency anemias (principal); I50.9 Heart failure, unspecified ==

== ENCOUNTER → 2019-03-15 | Outpatient (CLI) | payer MEDICARE, OTHER | LOC: GMAL 14:25 | PROVIDERS: ATTEND Family Medicine | DX: R53.82 Chronic fatigue, unspecified (principal) ==

== ENCOUNTER → 2019-12-28 | Outpatient (CLI) | payer MEDICARE, OTHER | LOC: GMAL 14:50 | PROVIDERS: ATTEND Family Medicine | DX: D51.3 Other dietary vitamin B12 deficiency anemia (principal); D50.8 Other iron deficiency anemias; E55.9 Vitamin D deficiency, unspecified; E03.9 Hypothyroidism, unspecified; Z79.899 Other long term (current) drug therapy ==

== ENCOUNTER → 2020-02-29 | Outpatient (CLI) | payer MEDICARE, OTHER | LOC: GMAL 10:25 | PROVIDERS: ATTEND Family Medicine | DX: D51.3 Other dietary vitamin B12 deficiency anemia (principal); D64.9 Anemia, unspecified; I10 Essential (primary) hypertension; E78.49 Other hyperlipidemia ==